=== PATIENT | female | born 1975 | race Caucasian/White ===

== ENCOUNTER 2019-08-03 22:27 | Emergency (ER) | payer SELFPAY ==
[2019-08-03 22:53] VITALS: BP 124/79; PULSE 107; RESP 18; TEMP 36.4; O2SAT 94
--- NOTE | 2019-08-04 01:56 | ED.EXTPRO ---
HPI - Extremity Problem General Chief complaint: Extremity Problem,Nontraumatic Stated complaint: ?blood clot Time Seen by Provider: 08/04/19 01:55 Source: patient and RN notes reviewed Mode of arrival: other Limitations: no limitations History of Present Illness HPI Narrative: Pt is a 44 y/o female who presents to the ED with c/o a possible DVT in her left thigh that began yesterday (08/03/19). Pt has a hx of factor 5 leiden mutation double copy and a previous DVT to her LLE. Pt reports left thigh pain. Pt called her PCP and she was recommended to get an US. Pt is from [place], [place]. Pt states that she is in town because her is a dump truck operator and they are passing through. Pt is currently staying in a hotel. Pt denies CP and SOB. Pt is taking Xarelto. Complaint: extremity pain Onset (ago): hour(s) Pain Consistency: constant Location: left and other (thigh) Associated symptoms: denies other symptoms Context: history of DVT Related Data Home Medications Medication Instructions Recorded Confirmed lisinopril-hydrochlorothiazide 1 tablet PO DAILY 08/03/19 rivaroxaban [Xarelto] 20 mg PO DAILY 08/03/19 Allergies Allergy/AdvReac Type Severity Reaction Status Date / Time morphine Allergy Swelling Verified 08/03/19 22:31 of Lip/Tongue/Throat spinach Allergy Swelling Verified 08/03/19 22:31 of Lip/Tongue/Throat Sulfa (Sulfonamide Allergy Swelling Verified 08/03/19 22:31 Antibiotics) of Lip/Tongue/Throat Review of Systems Review of Systems: All systems reviewed & are unremarkable except as noted in HPI and below Cardiovascular: Cardiovascular: Denies chest pain Respiratory: Respiratory: Denies dyspnea Musculoskeletal: Musculoskeletal: Reports other (left thigh pain) [facility] Past Medical History Medical History (Updated 08/04/19 @ 04:00 by Estela Dietz MD) Asthma DVT (deep venous thrombosis) in E Factor 5 Leiden mutation, heterozygous double copy Heart palpitations HTN (hypertension) Hypoglycemia Inguinal hernia Pulmonary embolism Surgical History Surgical History (Updated 08/04/19 @ 02:04 by Komal Olivier) History of tubal ligation Hx of section Social History Social History (Updated 08/04/19 @ 03:07 by Komal Olivier) Smoking status: Former smoker Tobacco type: cigarettes Smoking end date: 06/07/09 Gender identity (if verbalized by the patient): Female Exam Const: General: cooperative, no acute distress and alert Nutritional Appearance: well nourished Orientation/consciousness: patient oriented x3 Limitations: no limitations HENMT: Mouth: Yes lip normal and Yes moist mucous membranes Throat: other (throat normal) Resp: Effort & Inspection: normal respiratory effort Auscultation: clear to auscultation bilaterally Cardio: Rate: regular rate Rhythm: regular rhythm Heart sounds: no murmurs Skin: General skin exam: normal color Neuro: General: patient oriented x3 Cognition (Neuro): normal cognition Speech: normal speech Extrem: General: normal to inspection, full ROM, no clubbing, cyanosis or edema and no calf tenderness bilaterally Left lower extremity: hip/thigh Details: tenderness Location: other (to medial thigh on left side) Psych: Mental Status: mental status grossly normal Affect: normal affect Attitude: cooperative Course Course Emergency Course: Patient advised ultrasound not available after hours. Given patient does not have local primary care physician and is simply passing through the area, discussed keeping patient in the emergency department overnight and getting ultrasound at 7 AM, given making arrangements for outpatient testing would not be feasible. Patient initially agreed to care plan. Patient subsequently eloped from the emergency department without notifying staff. Vital Signs Vital signs: Vital Signs Temperature 97.6 F 08/03/19 22:53 Pulse Rate 107 H 08/03/19 22:53 Respirato
== END 2019-08-04 02:20 | disposition left against medical advice (07) ==
PROVIDERS: Emergency Provider Emergency Medicine
DX: M79.652 Pain in left thigh (principal); D68.51 Activated protein C resistance; I10 Essential (primary) hypertension; Z86.718 Personal history of other venous thrombosis and embolism; Z87.891 Personal history of nicotine dependence
CPT/HCPCS: 99281